=== PATIENT | female | born 1955 | race Caucasian/White ===

== ENCOUNTER → 2021-10-13 | Outpatient (CLI) | payer MEDICARE ==
--- NOTE | 2021-10-13 12:25 | KCIC ---
Examination: MRI of the right knee without contrast HISTORY: History of medial anterior knee joint pain COMPARISON: None available Technique: Multiplanar, multisequence MR imaging of the right knee were performed without contrast. FINDINGS: The anterior cruciate ligament, posterior cruciate ligament appears intact. The evaluation of the ant erior cruciate ligament is somewhat limited.There is blunting and attenuated appearance of the body o f the medial meniscus with mild extrusion of the medial meniscus medially. Lateral meniscus appears i ntact. There is complete cartilage loss identified in the weightbearing portion of the medial compart ment. There is a 1.2 cm multiloculated cystic structure identified extending posteriorly and medially from the posterior horn of the medial meniscus likely small ganglion cyst. There is a small probable ganglion cyst measuring 9 mm identified extending from the posterior root of the lateral meniscus. Small knee joint effusion with a small popliteal cyst identified. There is deep fissuring of cartilag e identified in the medial compartment. Mild patchy trabecular edema identified in the medial femoral condyle, medial tibial plateau. Mild superficial fraying of cartilage identified in the lateral potts llofemoral compartments. Moderate degenerative changes medial, lateral, patellofemoral compartments m ost in the medial compartment. The extensor mechanism is intact. IMPRESSION: 1. Blunting and attenuated appearance of the body of the medial meniscus with mild extrusion of the medial meniscus medially. 2. Small ganglion cyst identified extending posteriorly and medially from the posterior horn of the medial meniscus. Small ganglion cyst measuring 9 mm identified extending from the posterior root of t he lateral meniscus. 3. Grade III chondromalacia medial compartment. Moderate tricompartmental degenerative changes most in the medial compartment. 4. Small knee joint effusion with a small popliteal cyst. Electronically signed by: Juliano Jackson MD (10/13/2021 12:23 PM) [id number]
== END ==
LOC: KCIC MRI 10:09
PROVIDERS: ATTEND Nurse Practitioner Family
DX: M67.461 Ganglion, right knee (principal); M17.11 Unilateral primary osteoarthritis, right knee; M94.261 Chondromalacia, right knee; M25.461 Effusion, right knee; M71.21 Synovial cyst of popliteal space [Baker], right knee
CPT/HCPCS: 73721